=== PATIENT | male | born 1990 | race Caucasian/White ===

== ENCOUNTER 2017-10-13 03:43 | Emergency (ER) | payer MEDICAID ==
[~2017-10-13] VITALS: Ht 165.1 cm; Wt 84.0 kg
[2017-10-13 06:00] VITALS: BP 128/78
[2017-10-13] MEDS ORDERED: IBUPROFEN 600MG TABLET PO ONE (06:30)
== END 2017-10-13 07:18 | disposition home or self-care (01) ==
LOC: ER 03:43
DX: M25.572 Pain in left ankle and joints of left foot (principal); Y04.0XXA Assault by unarmed brawl or fight, initial encounter; Y93.89 Activity, other specified; Y92.89 Other specified places as the place of occurrence of the external cause; R03.0 Elevated blood-pressure reading, without diagnosis of hypertension; J45.909 Unspecified asthma, uncomplicated
CPT/HCPCS: 73610; 99284

== ENCOUNTER 2020-04-29 17:32 | Emergency (ER) | payer MEDICAID ==
[~2020-04-29] VITALS: Ht 165.1 cm; Wt 97.5 kg
[2020-04-29] MEDS ORDERED: KETOROLAC 30MG/ML VIAL IM ONE (18:15)
[2020-04-29 18:33] VITALS: BP 92/52
== END 2020-04-29 19:05 | disposition home or self-care (01) ==
LOC: ER 17:32
DX: M54.5 Low back pain (principal); J45.909 Unspecified asthma, uncomplicated
CPT/HCPCS: 72100; 96372; 99283; J1885